=== PATIENT | male | born 1960 | race Hispanic/Latino ===

== ENCOUNTER 2016-08-11 16:02 | Emergency (ER) | payer OTHER ==
[2016-08-11 16:25] VITALS: BP 142/74
[2016-08-11] MEDS ORDERED: NACL 0.9% 1000 ML 1,000 ML ONE (16:27)
--- NOTE | 2016-08-11 16:58 | Emergency Department Report ---
ED General Adult HPI - General Chief complaint: Hyperglycemia Stated complaint: HYPERGLYCEMIA Time Seen by Provider: 08/11/16 16:45 Source: patient, EMS (ems notes not available at time of chart dictation), RN notes reviewed Mode of arrival: Stretcher Limitations: No Limitations - History of Present Illness Initial comments: This is a 56-year-old male. He is previously unknown to me. He has a past medical history of diabetes, his primary care doctor is Dr. Cruz at [facility]. Brought to the hospital by EMS for generalized weakness. Patient reports that his fingerstick is high. He denies headache, S pain, shortness of breath, abdominal pain, irritative urinary symptoms, obstructive urinary symptoms. He indicates that he feels weak globally. Symptoms started today. They're constant. They have no exacerbating or relieving factors. The patient is not homicidal. He is not suicidal. -: Gradual Consistency: constant Improves with: none, cold therapy Worsens with: none Associated Symptoms: malaise, weakness. denies: confusion, chest pain, cough, diaphoresis, fever/chills - Related Data Allergies Allergy/AdvReac Type Severity Reaction Status Date / Time No Known Allergies Allergy Unverified 08/11/16 16:25 ED Review of Systems ROS: Stated complaint: HYPERGLYCEMIA Other details as noted in HPI Constitutional: malaise, weakness. denies: fever Eyes: denies: vision change ENT: denies: epistaxis Respiratory: denies: cough Cardiovascular: denies: chest pain Gastrointestinal: denies: abdominal pain Genitourinary: denies: dysuria Musculoskeletal: denies: back pain Skin: denies: lesions Neurological: weakness ED Past Medical Hx - Past Medical History Previous Medical History?: Yes Hx Diabetes: Yes - Surgical History Past Surgical History?: No - Social History Smoking Status: Former Smoker Substance Use Type: None ED Physical Exam - General Limitations: No Limitations General appearance: alert, in no apparent distress - Head Head exam: Present: atraumatic, normocephalic - Eye Eye exam: Present: normal appearance, PERRL, EOMI. Absent: nystagmus - ENT ENT exam: Present: normal exam, normal orophraynx, mucous membranes moist, normal external ear exam - Neck Neck exam: Present: normal inspection, full ROM. Absent: tenderness, meningismus - Respiratory Respiratory exam: Present: normal lung sounds bilaterally. Absent: respiratory distress, wheezes, rales, rhonchi, stridor, decreased breath sounds - Cardiovascular Cardiovascular Exam: Present: regular rate, normal rhythm, normal heart sounds. Absent: bradycardia, tachycardia, irregular rhythm, systolic murmur, diastolic murmur, rubs, gallop - GI/Abdominal GI/Abdominal exam: Present: soft, normal bowel sounds. Absent: distended, tenderness, guarding, rebound, rigid - Rectal Rectal exam: Present: deferred - Extremities Exam Extremities exam: Present: normal inspection, full ROM, normal capillary refill. Absent: tenderness, pedal edema, joint swelling, calf tenderness - Back Exam Back exam: Present: normal inspection, full ROM. Absent: tenderness, CVA tenderness (R), CVA tenderness (L), muscle spasm, paraspinal tenderness, vertebral tenderness - Neurological Exam Neurological exam: Present: alert, oriented X3, normal gait, other (Extraocular movements intact. Tongue midline. No facial droop. Facial sensation intact to light touch in the V1, V2, V3 distribution bilaterally. 5 and 5 strength in 4 extremities.. Sensation is intact to light touch in 4 extremities.). Absent : motor sensory deficit - Psychiatric Psychiatric exam: Present: flat affect - Skin Skin exam: Present: warm, dry, intact, normal color. Absent: rash ED Course Vital Signs 08/11/16 08/11/16 08/11/16 16:14 16:20 16:31 Temperature 98.4 F Pulse Rate 82 82 Respiratory 25 H Rate Blood Pressure 142/74 142/74 O2 Sat by Pulse 100 98 98 Oximetry 08/11/16 08/11/16 08/11/16 17:01 17:31 18:31 Temperature Pulse Rate 73 78 Respiratory 15 16 16 Rate Blood Pressure 142/74 142/74 O2 Sat by Pulse 89 100 100 Oximetry - Reevaluation(s) Reevaluation #1: 08/11/16 17:49 Differential diagnosis: Hyperglycemia, urinary tract infection, pneumonia, diabetic ketoacidosis, hyperosmolar state Assessment and plan: 56-year-old male with hyperglycemia. He is alert and oriented 3, has a GCS of 15, NIH score of 0. He does have a bizarre flat affect, but he is clinically sober, walks with a steady gait, does not require 1013 or advanced neuro imaging at this time. blood sugar noted to be over 500. No anion gap acidosis is noted. IV fluids, insulin ordered. Urinalysis pending. Chest x-ray appears negative. Reevaluation #2: 08/11/16 19:35 Repeat Accu-Chek improved. Laboratory studies not consistent with anion gap acidosis. Walking around without difficulty. Repeat physical examination unremarkable. Patient will be discharged with instructions to follow up with outpatient primary care doctor. Return precautions are extensively reviewed. ED Medical Decision Making - Lab Data Result diagrams: 08/11/16 16:45 08/11/16 16:45 Vital Signs 08/11/16 16:14 Temperature 98.4 F Pulse Rate 82 Blood Pressure 142/74 O2 Sat by Pulse 100 Oximetry Lab Results 08/11/16 08/11/16 08/11/16 Range/Units 16:29 16:45 16:45 WBC 9.5 (4.5-11.0) K/mm3 RBC 4.10 (3.65-5.03) M/mm3 Hgb 13.6 (11.8-15.2) gm/dl Hct 39.7 (35.5-45.6) % MCV 97 H (84-94) fl MCH 33 H (28-32) pg MCHC 34 (32-34) % RDW 13.1 L (13.2-15.2) % Plt Count 165 (140-440) K/mm3 Lymph % (Auto) 16.6 (13.4-35.0) % [place] % (Auto) 7.3 (0.0-7.3) % Eos % (Auto) 1.3 (0.0-4.3) % Baso % (Auto) 0.4 (0.0-1.8) % Lymph # 1.6 (1.2-5.4) K/mm3 [place] # 0.7 (0.0-0.8) K/mm3 Eos # 0.1 (0.0-0.4) K/mm3 Baso # 0.0 (0.0-0.1) K/mm3 Seg Neutrophils % 74.4 H (40.0-70.0) % Seg Neutrophils # 7.0 (1.8-7.7) K/mm3 VBG pH (7.320-7.420) Sodium 132 L (137-145) mmol/L Potassium 4.0 (3.6-5.0) mmol/L Chloride 93.1 L (98-107) mmol/L Carbon Dioxide 24 (22-30) mmol/L Anion Gap 19 mmol/L BUN 13 (9-20) mg/dL Creatinine 0.9 (0.8-1.5) mg/dL Estimated GFR > 60 ml/min BUN/Creatinine Ratio 14.44 % Glucose 581 H* (75-100) mg/dL POC Glucose > 500 H (70-105) Calcium 8.2 L (8.4-10.2) mg/dL 08/11/16 Range/Units 16:45 WBC (4.5-11.0) K/mm3 RBC (3.65-5.03) M/mm3 Hgb (11.8-15.2) gm/dl Hct (35.5-45.6) % MCV (84-94) fl MCH (28-32) pg MCHC (32-34) % RDW (13.2-15.2) % Plt Count (140-440) K/mm3 Lymph % (Auto) (13.4-35.0) % [place] % (Auto) (0.0-7.3) % Eos % (Auto) (0.0-4.3) % Baso % (Auto) (0.0-1.8) % Lymph # (1.2-5.4) K/mm3 [place] # (0.0-0.8) K/mm3 Eos # (0.0-0.4) K/mm3 Baso # (0.0-0.1) K/mm3 Seg Neutrophils % (40.0-70.0) % Seg Neutrophils # (1.8-7.7) K/mm3 VBG pH 7.411 (7.320-7.420) Sodium (137-145) mmol/L Potassium (3.6-5.0) mmol/L Chloride (98-107) mmol/L Carbon Dioxide (22-30) mmol/L Anion Gap mmol/L BUN (9-20) mg/dL Creatinine (0.8-1.5) mg/dL Estimated GFR ml/min BUN/Creatinine Ratio % Glucose (75-100) mg/dL POC Glucose (70-105) Calcium (8.4-10.2) mg/dL - Radiology Data Radiology results: image reviewed interpreted by me: X-ray the chest is negative for acute disease Critical care attestation.: If time is entered above; I have spent that time in minutes in the direct care of this critically ill patient, excluding procedure time. ED Disposition Clinical Impression: Hyperglycemia Disposition: DISCHARGED TO HOME OR SELFCARE Is pt being admited?: No Does the pt Need Aspirin: No Condition: Good Instructions: Diabetic Hyperglycemia (ED) Additional Instructions: Continue current outpatient medications. adhere to a diabetic diet. The [place] [employer] has online resources to assist in dietary decision making. Follow up with a primary care doctor within the next week to [address] Luis Felipe Oviedo is a local primary care doctor. Follow up with her primary care doctor within the next 10 days. Long-term complications of elevated blood sugar/hyperglycemia includes stroke, heart attack, disability, , paralysis , permanent loss of quality of life. Return to the ER right away with fevers or chills, chest pain or shortness of breath, intractable nausea or vomiting, inability to tolerate liquids feeds. Referrals: PRIMARY MD ALESHIA [Primary Care Provider] - 3-5 Days LUIS FELIPE OVIEDO MD [Staff Physician] - 3-5 Days
[2016-08-11] MEDS: NACL 0.9% 1000 ML 1,000 ML IV ONE ×2 (16:59→18:30)
[2016-08-11 17:03] LABS: Basophils % (Auto) 0.4 % (0.0-1.8); Eosinophils % (Auto) 1.3 % (0.0-4.3); Hematocrit 39.7 % (35.5-45.6); Hemoglobin 13.6 gm/dl (11.8-15.2); Mean Corpuscular HGB Conc 34 % (32-34); Mean Corpuscular Hemoglobin 33 pg (28-32); Mean Corpuscular Volume 97 fl (84-94); Platelet Count 165 K/mm3 (140-440); Red Cell Distribution Width 13.1 % (13.2-15.2); White Blood Count 9.5 K/mm3 (4.5-11.0)
[2016-08-11 17:20] LABS: Anion Gap 19 mmol/L; BUN/Creatinine Ratio 14.44; Blood Urea Nitrogen 13 mg/dL (9-20); Calcium 8.2 mg/dL (8.4-10.2); Carbon Dioxide 24 mmol/L (22-30); Chloride 93.1 mmol/L (98-107); Sodium 132 mmol/L (137-145)
[2016-08-11 17:30] LABS: Glucose 581 mg/dL (75-100)
[2016-08-11 19:14] LABS: Bilirubin,Urine NEG (Negative); Blood,Urine NEG (Negative); Ketones,Urine 20 mg/dL (Negative); Leukocyte Esterase,Urine NEG (Negative); Mucus,Urine FEW /HPF; Nitrite,Urine NEG (Negative); Protein,Urine <15 mg/dL mg/dL (Negative); Urobilinogen,Urine < 2.0 mg/dL (<2.0)
[2016-08-11 19:15] LABS: WBC,Urine < 1.0 /HPF (0.0-6.0)
--- NOTE | 2016-08-12 07:16 | XRay Report ---
Single view chest: History: PNA. Hypoglycemia. Findings: Normal cardiomediastinal silhouette. Trachea is midline. No consolidation, pneumothorax or pleural effusion. Impression: No acute cardiopulmonary findings.
[2016-08-15 23:33] LABS: B-Hydroxybutyrate 1.6 mmol/L (-0.28)
== END 2016-08-11 19:45 | disposition home or self-care (01) ==
LOC: ED 16:02
DX: E11.65 Type 2 diabetes mellitus with hyperglycemia (principal)
CPT/HCPCS: 36415; 71010; 80048; 81001; 82010; 82805; 82962; 85025; 96361; 96374; 99285; J7030; J1815